=== PATIENT | female | born 1955 | race Caucasian/White ===

== ENCOUNTER 2020-07-23 05:38 | Outpatient (CLI) | payer OTHER ==
[~2020-07-23] VITALS: Ht 167.7 cm; Wt 72.7 kg
[2020-07-23] MEDS ORDERED: LISI40TA9 PO (11:10)
[2020-07-23] MEDS ORDERED: ROSU10TA28 PO (11:10)
== END 2020-07-23 11:13 | disposition home or self-care (01) ==
LOC: PREOP 05:38
PROVIDERS: ATTEND Specialist
DX: Z01.818 Encounter for other preprocedural examination (principal)

== ENCOUNTER 2020-07-25 11:56 | Day surgery (SDC) | payer OTHER ==
[~2020-07-25] VITALS: Ht 167 cm; Wt 72.7 kg
[~2020-07-25 11:56] MED LIST: LISI40TA9 PO; ROSU10TA28 PO
[2020-07-25] MEDS ORDERED: MIDAZOLAM 2 MG/2 ML (VERSED) VIAL ONE (12:13)
[2020-07-25] MEDS: TETRACAINE 0.5% OPHTH SOLN 4 ML BTL (SINGLE DOSE ONLY) OU PRN ×4 (12:27→12:42)
[2020-07-25] MEDS ORDERED: MOXIFLOXACIN OPHTH SOLN 5 MG/ML 0.3 ML SYRINGE OP ONE (12:30)
[2020-07-25] MEDS ORDERED: TIMOLOL MALEATE 0.5% 5 ML (TIMOPTIC) BTL OU PRN (12:30)
[2020-07-25] MEDS ORDERED: LIDOCAINE PF 1% 2 ML VIAL IR PRN (12:30)
[2020-07-25] MEDS ORDERED: POVIDONE (BETADINE) OPHTH SOLN 5% 30 ML OP ONE (12:30)
[2020-07-25] MEDS: PHENYLEPHRINE 10% OPHTH (NEO-SYN) 5 ML BTL OU SCH ×3 (12:32→12:42)
[2020-07-25] MEDS: TROPICAMIDE 1% OPH SOLN (MYDRIACYL) 15 ML BTL OP SCH ×3 (12:32→12:42)
--- NOTE | 2020-07-25 12:35 | Ophthalmologist Pre-Op Note ---
Pre-Operative Progress Note H&P Reviewed The H&P was reviewed, patient examined and no changes noted. Date H&P Reviewed: Jul 25, 2020 Time H&P Reviewed: 12:35 Pre-Op Dx Cataract, Left Eye LAKIA GAGE MD Jul 25, 2020 12:35
[2020-07-25 12:38] VITALS: BP 159/87
--- NOTE | 2020-07-25 13:21 | Ophthalmology Operative Report ---
Cataract removal/placement IOL PREOPERATIVE DIAGNOSIS: Cataract Left Eye POSTOPERATIVE DIAGNOSIS: Cataract Left Eye PROCEDURE: Cataract removal and placement of posterior chamber implant, left eye SURGEON: Martinez Gage ANESTHESIA: Topical with sedation COMPLICATIONS: None ESTIMATED BLOOD LOSS: Minimal DESCRIPTION OF PROCEDURE: After proper informed consent was obtained, the patient, a 64 female, was taken to the Operating Room and the left eye was anesthetized with tetracaine. The left eye was then prepped and draped in the usual manner. A wire lid speculum was placed. A paracentesis was made at the left hand position. Preservative free lidocaine was injected into the anterior chamber followed by viscoelastic. A clear corneal incision was made in the temporal position. A capsulorrhexis was preformed and the central nuclear and cortical material were removed. The posterior capsule was polished and an Ryan 17.0 AU00T0 was placed into the capsular bag. The residual viscoelastic was aspirated and balanced saline solution was injected into the anterior chamber. Moxifloxacin was injected into the anterior chamber. The wound was checked and found to be water tight. The patient tolerated the procedure well without complications. MARTINEZ GAGE MD Jul 25, 2020 13:20
[2020-07-25 13:30] VITALS: BP 150/94
[2020-07-25] MEDS ORDERED: acetaZOLAMIDE ER 500 MG CAP (DIAMOX SEQUELS) PO ONE (13:30)
--- NOTE | 2020-07-25 14:52 | Anesthesia-General Post-Op ---
MAC Patient Condition Mental Status/LOC: Same as Preop Cardiovascular: Satisfactory Nausea/Vomiting: Absent Respiratory: Satisfactory Pain: Controlled Complications: Absent Post Op Complications Complications None Follow Up Care/Instructions Patient Instructions None needed. Anesthesiology Discharge Order Discharge Order Patient is doing well, no complaints, stable vital signs, no apparent adverse anesthesia problems. No complications reported per nursing. PAIGE REDMAN CRNA Jul 25, 2020 14:52
== END 2020-07-25 13:31 ==
LOC: SDC 11:56
PROVIDERS: ATTEND Specialist
DX: H25.12 Age-related nuclear cataract, left eye (principal); I10 Essential (primary) hypertension; J44.9 Chronic obstructive pulmonary disease, unspecified; M19.90 Unspecified osteoarthritis, unspecified site; Z88.5 Allergy status to narcotic agent; Z90.710 Acquired absence of both cervix and uterus; Z90.89 Acquired absence of other organs; Z98.890 Other specified postprocedural states
CPT/HCPCS: 66984; V2632

== ENCOUNTER → 2020-08-11 | Outpatient (CLI) | payer OTHER | END | disposition home or self-care (01) | LOC: PREOP 06:15 | PROVIDERS: ATTEND Specialist | DX: Z01.818 Encounter for other preprocedural examination (principal) ==

== ENCOUNTER 2020-09-05 06:12 | Outpatient (CLI) | payer OTHER ==
[~2020-09-05] VITALS: Ht 167.7 cm; Wt 72.7 kg
== END 2020-09-10 10:59 | disposition home or self-care (01) ==
LOC: PREOP 06:12
PROVIDERS: ATTEND Specialist
DX: Z01.818 Encounter for other preprocedural examination (principal)

== ENCOUNTER 2020-09-12 11:40 | Day surgery (SDC) | payer OTHER ==
[~2020-09-12] VITALS: Ht 167.7 cm; Wt 72.7 kg
[2020-09-12] MEDS: TETRACAINE 0.5% OPHTH SOLN 4 ML BTL (SINGLE DOSE ONLY) OU PRN ×4 (12:39→13:00)
[2020-09-12] MEDS ORDERED: POVIDONE (BETADINE) OPHTH SOLN 5% 30 ML OP ONE (12:45)
[2020-09-12] MEDS ORDERED: TIMOLOL MALEATE 0.5% 5 ML (TIMOPTIC) BTL OU PRN (12:45)
[2020-09-12] MEDS ORDERED: MOXIFLOXACIN OPHTH SOLN 5 MG/ML 0.3 ML SYRINGE OP ONE (12:45)
[2020-09-12] MEDS: PHENYLEPHRINE 10% OPHTH (NEO-SYN) 5 ML BTL OU SCH ×3 (12:45→13:00)
[2020-09-12] MEDS ORDERED: LIDOCAINE PF 1% 2 ML VIAL IR PRN (12:45)
[2020-09-12] MEDS: TROPICAMIDE 1% OPH SOLN (MYDRIACYL) 15 ML BTL OP SCH ×3 (12:46→13:00)
[2020-09-12 12:50] VITALS: BP 153/75
[2020-09-12] MEDS ORDERED: MIDAZOLAM 2 MG/2 ML (VERSED) VIAL ONE (12:55)
--- NOTE | 2020-09-12 13:21 | Ophthalmologist Pre-Op Note ---
Pre-Operative Progress Note H&P Reviewed The H&P was reviewed, patient examined and no changes noted. Date H&P Reviewed: Sep 12, 2020 Time H&P Reviewed: 13:21 Pre-Op Dx Cataract, Right Eye LAKIA GAGE MD Sep 12, 2020 13:21
[2020-09-12] MEDS ORDERED: acetaZOLAMIDE ER 500 MG CAP (DIAMOX SEQUELS) PO ONE (13:30)
--- NOTE | 2020-09-12 13:46 | Ophthalmology Operative Report ---
Cataract removal/placement IOL PREOPERATIVE DIAGNOSIS: Cataract Right Eye POSTOPERATIVE DIAGNOSIS: Cataract Right Eye PROCEDURE: Cataract removal and placement of posterior chamber implant, right eye SURGEON: Martinez Gage ANESTHESIA: Topical with sedation COMPLICATIONS: None ESTIMATED BLOOD LOSS: Minimal DESCRIPTION OF PROCEDURE: After proper informed consent was obtained, the patient, a 64 female, was taken to the Operating Room and the right eye was anesthetized with tetracaine. The right eye was then prepped and draped in the usual manner. A wire lid speculum was placed. A paracentesis was made at the left hand position. Preservative free lidocaine was injected into the anterior chamber followed by viscoelastic. A clear corneal incision was made in the temporal position. A capsulorrhexis was preformed and the central nuclear and cortical material were removed. The posterior capsule was polished and Ryan 17.0 AU00T0 IOL was placed into the capsular bag. The residual viscoelastic was aspirated and balanced saline solution was injected into the anterior chamber. Moxifloxacin was injected into the anterior chamber. The wound was checked and found to be water tight. The patient tolerated the procedure well without complications. MARTINEZ GAGE MD Sep 12, 2020 13:46
--- NOTE | 2020-09-12 13:56 | Anesthesia-General Post-Op ---
MAC Patient Condition Mental Status/LOC: Same as Preop Cardiovascular: Satisfactory Nausea/Vomiting: Absent Respiratory: Satisfactory Pain: Controlled Complications: Absent Post Op Complications Complications None Follow Up Care/Instructions Patient Instructions None needed. Anesthesiology Discharge Order Discharge Order Patient is doing well, no complaints, stable vital signs, no apparent adverse anesthesia problems. No complications reported per nursing. MICHELLE PENA CRNA Sep 12, 2020 13:56
[2020-09-12 13:57] VITALS: BP 147/76
== END 2020-09-12 13:58 | disposition home or self-care (01) ==
LOC: SDC 11:40
PROVIDERS: ATTEND Specialist
DX: H25.11 Age-related nuclear cataract, right eye (principal); I10 Essential (primary) hypertension; J44.9 Chronic obstructive pulmonary disease, unspecified; K44.9 Diaphragmatic hernia without obstruction or gangrene; M19.90 Unspecified osteoarthritis, unspecified site; Z79.899 Other long term (current) drug therapy
CPT/HCPCS: 66984; V2632